=== PATIENT | male | born 1945 | race Caucasian/White ===

== ENCOUNTER → 2021-04-03 11:36 | Outpatient (CLI) | payer OTHER, SELFPAY ==
--- NOTE | 2021-04-03 | DI.MRI.S_ITS ---
PROCEDURE: MR SHOULDER RT W CON INDICATIONS: PAIN IN RIGHT SHOULDER TECHNIQUE: After the administration of 12 mL of dilute intra-articular Gadolinium contrast, oblique coronal T1 and T2 spin echo with fat saturation, oblique sagittal T1 spin echo with and without fat saturation, oblique sagittal T2 fast spin echo with fat saturation, axial T1 spin echo with fat saturation through the shoulder. COMPARISON: None. FINDINGS: Image quality: Excellent. Rotator cuff: Full-thickness tearing of the entire supraspinatus tendon as well as the mid and anterior infraspinatus tendon at the humeral insertion site, associated with medial retraction and atrophy of the supraspinatus and infraspinatus tendons. There is high-grade partial-thickness articular surface and intrasubstance tearing of the mid subscapularis tendon at the humeral insertion site. Bones and bursae: No bone marrow contusions or fractures. Multiple tendon anchors within the humeral head are present. Moderate o acromioclavicular joint degeneration. The acromion demonstrates conventional anatomy, without an os acromiale. Capsule and soft tissues: There is undercutting of the mid posterior and mid anterior labrum. The long head of the biceps tendon demonstrates normal location and high-grade tearing The rotator interval appears normal, without fibrosis. The coracohumeral ligament is of normal thickness. No intra-articular bodies. IMPRESSION: 1. Full-thickness tearing of the entire supraspinatus tendon as well as most of the infraspinatus tendon, associated with medial retraction and atrophy. 2. High-grade tearing of the mid subscapularis tendon. 3. Acromioclavicular joint osteoarthritis. 4. Postsurgical sequelae. 5. Glenoid labral tearing. 6. Biceps tendon tear. Dictated by: Joseph Lei M.D. on 04/03/2021 at 15:04 Approved by: Joseph Lei M.D. on 04/03/2021 at 15:06
--- NOTE | 2021-04-03 | DI.RAD.S_ITS ---
PROCEDURE: FL SHOULDER INJECTION MR/CT RT INDICATIONS: pain in right shoulder COMPARISON: [facility], MR, MR SHOULDER RT W CON, 04/03/2021, 13:34. TECHNIQUE: The indications, alternatives, benefits, risks, and complications of the procedure were explained to the patient. Written informed consent was obtained and placed in the chart. The shoulder was examined fluoroscopically and a site for needle placement chosen for entry into the glenohumeral joint from an anterior approach. The skin was prepped and draped in a sterile fashion, and 1% lidocaine infiltrated from skin down to joint capsule. A spinal needle was inserted into the glenohumeral joint, and a small amount of iodinated contrast media injected to confirm intra-articular placement of the needle tip. This was followed by approximately 12 mL dilute solution of a gadolinium containing MR contrast agent. The needle was removed and a dressing was applied. The patient was given postprocedural instructions and sent to the MR suite for MR imaging. FINDINGS: A single fluoroscopic spot image demonstrates intra-articular location of injected iodinated contrast. IMPRESSION: Successful fluoroscopically guided administration of dilute Gadolinium solution into the shoulder joint for MR arthrogram. Dictated by: Vasquez Gaspar M.D. on 04/03/2021 at 16:51 Approved by: Vasquez Gaspar M.D. on 04/03/2021 at 16:52
== END ==
PROVIDERS: Referring Provider Orthopaedic Surgery; Visit Provider Orthopaedic Surgery
DX: M25.511 Pain in right shoulder (principal); M75.121 Complete rotator cuff tear or rupture of right shoulder, not specified as traumatic; M19.011 Primary osteoarthritis, right shoulder; S43.491A Other sprain of right shoulder joint, initial encounter; S46.111A Strain of muscle, fascia and tendon of long head of biceps, right arm, initial encounter
CPT/HCPCS: 23350; 73222; 77002

== ENCOUNTER → 2021-04-07 11:24 | Outpatient (CLI) | payer OTHER, SELFPAY ==
--- NOTE | 2021-04-07 | DI.RAD.S_ITS ---
PROCEDURE: FL SHOULDER INJECTION MR/CT LT INDICATIONS: LEFT SHOULDER PAIN COMPARISON: [facility], MR, MR SHOULDER LT W CON, 04/07/2021, 12:00. TECHNIQUE: The indications, alternatives, benefits, risks, and complications of the procedure were explained to the patient. Written informed consent was obtained and placed in the chart. The shoulder was examined fluoroscopically and a site for needle placement chosen for entry into the glenohumeral joint from an anterior approach. The skin was prepped and draped in a sterile fashion, and 1% lidocaine infiltrated from skin down to joint capsule. A spinal needle was inserted into the glenohumeral joint, and a small amount of iodinated contrast media injected to confirm intra-articular placement of the needle tip. This was followed by approximately 12 mL dilute solution of a gadolinium containing MR contrast agent. The needle was removed and a dressing was applied. The patient was given postprocedural instructions and sent to the MR suite for MR imaging. FINDINGS: A single fluoroscopic spot image demonstrates intra-articular location of injected iodinated contrast. There was markedly greater than expected increased pressure to injection. This raises the possibility of adhesive capsulitis, although this remains a clinical diagnosis. IMPRESSION: Successful fluoroscopically guided administration of dilute Gadolinium solution into the shoulder joint for MR arthrogram. Dictated by: Vasquez Gaspar M.D. on 04/07/2021 at 13:47 Approved by: Vasquez Gaspar M.D. on 04/07/2021 at 13:50
--- NOTE | 2021-04-07 | DI.MRI.S_ITS ---
PROCEDURE: MR SHOULDER LT W CON INDICATIONS: LEFT SHOULDER PAIN TECHNIQUE: After the administration of 12 mL of dilute intra-articular Gadolinium contrast, oblique coronal T1 and T2 spin echo with fat saturation, oblique sagittal T1 spin echo with and without fat saturation, oblique sagittal T2 fast spin echo with fat saturation, axial T1 spin echo with fat saturation through the shoulder. COMPARISON: [facility], MR, MR SHOULDER RT W CON, 04/03/2021, 13:34. FINDINGS: Postsurgical changes related to prior rotator cuff repair. Rotator cuff: Large full-thickness tear involving the supraspinatus and infraspinatus tendons measuring approximately 2.8 cm in the AP dimension on sagittal pulse sequences. Teres minor tendon appears grossly intact. Subscapularis with full thickness slit-like tear, and background tendinopathy. Atrophy of the rotator cuff muscles is seen diffusely with relative sparing of the teres minor. Markedly high-riding humeral head. Bones and bursae: No bone marrow contusions or fractures. Moderate acromioclavicular joint degeneration. Acromion demonstrates conventional anatomy, without an os acromiale. Within the axillary pouch, there is possible debris versus reactive synovitis. Capsule and soft tissues: Labrum: Circumferential labral blunting and degeneration. However there is superimposed posterior labral tear with adjacent near full-thickness chondral loss and prominent degenerative changes seen in the glenoid. Some of the appearance could be related to prior surgery/labral repair. Glenohumeral ligaments: Inferior and superior glenohumeral ligaments are intact. Biceps tendon: Not well seen presumably due to rupture or prior tenodesis. Rotator interval: Partial obliteration of the subcoracoid fat signal intensity. Coracohumeral ligament: Intact. IMPRESSION: Large full-thickness rotator cuff tear as above which is likely recurrent given postsurgical changes. No prior comparison examination is available. Circumferential degeneration of the labrum, with superimposed irregularity involving the posterior segment, which could reflect postoperative appearance versus recurrent tear. Please correlate clinically to operative history. Adjacent near full-thickness chondral loss noted. Long head biceps tendon not well seen presumably due to prior tenodesis versus rupture. Debris versus reactive synovitis involving the axillary pouch. Dictated by: Vasquez Gaspar M.D. on 04/07/2021 at 13:55 Approved by: Vasquez Gaspar M.D. on 04/07/2021 at 14:10
== END ==
PROVIDERS: Referring Provider Orthopaedic Surgery; Visit Provider Orthopaedic Surgery
DX: M25.512 Pain in left shoulder (principal); M75.122 Complete rotator cuff tear or rupture of left shoulder, not specified as traumatic; M19.012 Primary osteoarthritis, left shoulder
CPT/HCPCS: 23350; 73222; 77002

== ENCOUNTER → 2021-06-02 07:07 | Outpatient (CLI) | payer OTHER, SELFPAY ==
[2021-06-02 08:38] LABS: Alanine Aminotransferase 42 IU/L (<50); Albumin Globulin Ratio 1.7 (1.0-2.8); Alkaline Phosphatase 56 U/L (38-126); Aspartate Aminotransferase 51 IU/L (17-59); BUN Creatinine Ratio 16.3 (6-22); Bilirubin Total 0.7 mg/dL (0.2-1.3); Blood Urea Nitrogen 13 mg/dL (9-20); Calcium 9.1 mg/dL (8.4-10.2); Carbon Dioxide 29 mmol/L (22-32); Chloride 96 mmol/L (98-107); Cholesterol 194 mg/dL (140-199); Estimated Glomerular Filt Rate > 60.0 mL/min (>60); Globulin 2.3 g/dL (1.7-4.1); Glucose 83 mg/dL (80-110); HDL Cholesterol 67 mg/dL (40-60); HEMOLYSIS < 15 (0-50); LDL Cholesterol Calculated 108 mg/dL (<100); Potassium 4.7 mmol/L (3.4-5.1); Sodium 130 mmol/L (137-145); Total Protein 6.3 g/dL (6.3-8.2); Triglycerides 97 mg/dL (35-150)
== END ==
PROVIDERS: PCP Internal Medicine; Referring Provider Internal Medicine; Visit Provider Internal Medicine
DX: J45.909 Unspecified asthma, uncomplicated (principal); Z13.6 Encounter for screening for cardiovascular disorders; Z12.5 Encounter for screening for malignant neoplasm of prostate; Z13.220 Encounter for screening for lipoid disorders
CPT/HCPCS: 36415; 80053; 80061; G0103

== ENCOUNTER → 2022-03-12 10:48 | Outpatient (CLI) | payer OTHER, SELFPAY ==
[2022-03-12 16:09] LABS: Influenza A - CEPHEID Flu A NEGATIVE (NEGATIVE); Influenza B - CEPHEID Flu B NEGATIVE (NEGATIVE); Respiratory Syncytial Virus Negative (Negative)
[2022-03-12 16:31] LABS: COVID-19 CEPHEID PCR (VTM/NP) Negative (Negative)
== END ==
PROVIDERS: Nurse Practitioner Family; PCP Internal Medicine; Visit Provider Student in an Organized Health Care Education/Training Program
DX: R05.9 Cough, unspecified (principal)
CPT/HCPCS: 0241U

== ENCOUNTER → 2022-03-12 14:41 | Outpatient (CLI) | payer OTHER, SELFPAY ==
--- NOTE | 2022-03-12 14:44 | DI.RAD.S_ITS ---
PROCEDURE: XR CHEST 2V INDICATIONS: Cough TECHNIQUE: 2 views of the chest were acquired. COMPARISON: None. FINDINGS: Surgical changes and devices: None. Lungs and pleura: Lungs are clear. No pleural effusions or pneumothorax. Mediastinum: Mediastinal contours are normal. Heart size is normal. Bones and chest wall: No suspicious bony abnormalities. T5, T7 and T8 compression deformities of indeterminate age. Soft tissues appear unremarkable. IMPRESSION: No acute cardiopulmonary disease process. Dictated by: Heidi Ureña MD, PhD on 03/12/2022 at 17:05 Approved by: Heidi Ureña MD, PhD on 03/12/2022 at 17:06
== END ==
PROVIDERS: PCP Internal Medicine; Referring Provider Nurse Practitioner Family; Visit Provider Nurse Practitioner Family
DX: R05.9 Cough, unspecified (principal)
CPT/HCPCS: 0241U; 71046

== ENCOUNTER → 2024-05-30 10:38 | Outpatient (CLI) | payer OTHER, SELFPAY ==
--- NOTE | 2024-05-30 10:39 | DI.RAD.S_ITS ---
PROCEDURE: XR CHEST 2V INDICATIONS: cough TECHNIQUE: 2 views of the chest were acquired. COMPARISON: None. FINDINGS: Surgical changes and devices: None. Lungs and pleura: Lungs are clear. No pleural effusions or pneumothorax. Mediastinum: Mediastinal contours are normal. Heart size is normal. Bones and chest wall: Multiple mild compression deformity of the thoracic spine, incompletely evaluated. IMPRESSION: No acute cardiopulmonary abnormality is seen. Dictated by: Thais Carter M.D. on 05/30/2024 at 14:35 Approved by: Thais Carter M.D. on 05/30/2024 at 14:36
[2024-05-30 11:13] LABS: Add Manual Diff / Slide Review NO; Basophils Absolute Auto 0 /uL (0-100); Eosinophils Absolute Auto 300 /uL (0-450); Eosinophils Percent Auto 9.1 % (2-4); Hematocrit 35.3 % (41-53); Hemoglobin 12.1 g/dL (13.5-17.5); Lymphocytes Absolute Auto 1000 /uL (1100-4500); Lymphocytes Percent Auto 30.8 % (25-40); Mean Corpuscular HGB Conc 34.3 % (30-36); Mean Corpuscular Hemoglobin 31.7 PG (26-34); Mean Corpuscular Volume 92.6 fL (80-100); Monocytes Absolute Auto 500 /uL (0-900); Monocytes Percent Auto 15.6 % (3-14); Neutrophils Absolute Auto 1500 /uL (1500-7000); Neutrophils Percent Auto 43.5 % (50-75); Platelet Count 339 X10^3/uL (150-400); Red Blood Cell Count 3.81 X10^6/uL (4.5-5.9); Red Cell Distribution Width 13.2 % (11.6-14.8); White Blood Cell Count 3.4 X10^3/uL (4.5-11.0)
[2024-05-30 11:18] LABS: Hemoglobin A1C% w Est Avg Glu 5.2 % (4.0-6.0)
[2024-05-30 11:30] LABS: Alanine Aminotransferase 20 IU/L (<50); Albumin Globulin Ratio 1.8 (1.0-2.8); Alkaline Phosphatase 66 U/L (38-126); Aspartate Aminotransferase 32 IU/L (17-59); BUN Creatinine Ratio 14.1 (6-22); Bilirubin Total 0.7 mg/dL (0.2-1.3); Blood Urea Nitrogen 12 mg/dL (9-20); Carbon Dioxide 27 mmol/L (22-32); Chloride 95 mmol/L (98-107); Estimated Glomerular Filt Rate > 60 mL/min (>60); Globulin 2.2 g/dL (1.7-4.1); Glucose 87 mg/dL (80-110); HEMOLYSIS < 15 (0-50); Potassium 4.1 mmol/L (3.4-5.1); Sodium 125 mmol/L (137-145); Total Protein 6.2 g/dL (6.3-8.2)
[2024-05-30 11:47] LABS: Prolactin 10.8 ng/mL (3.7-17.9)
[2024-05-30 12:01] LABS: TSH w/ Reflex to FT4 1.52 uIU/mL (0.47-4.68)
[2024-05-31 07:36] LABS: C Peptide 1.6 ng/mL (1.1-4.4); Insulin Level Total 3.2 uIU/mL (2.6-24.9)
== END ==
PROVIDERS: PCP Internal Medicine; Referring Provider Internal Medicine; Visit Provider Internal Medicine
DX: D35.2 Benign neoplasm of pituitary gland (principal); R05.9 Cough, unspecified; J45.909 Unspecified asthma, uncomplicated; E16.2 Hypoglycemia, unspecified; K52.9 Noninfective gastroenteritis and colitis, unspecified
CPT/HCPCS: 36415; 71046; 80053; 83036; 83525; 84146; 84443; 84681; 85025

== ENCOUNTER → 2024-05-30 15:34 | Outpatient (CLI) | payer OTHER, SELFPAY ==
[2024-05-30 15:50] LABS: HEMOLYSIS < 15 (0-50); Iron 53 ug/dL (49-181)
[2024-05-30 16:01] LABS: Percent Iron Saturation 17 % (20-50); Total Iron Binding Capacity 304 ug/dL (261-462); Transferrin 251 mg/dL (206-381)
[2024-05-30 16:41] LABS: Vitamin B12 300 pg/mL (239-931)
== END ==
PROVIDERS: PCP Internal Medicine; Visit Provider Internal Medicine
DX: D35.2 Benign neoplasm of pituitary gland (principal); J45.20 Mild intermittent asthma, uncomplicated; R53.83 Other fatigue; R05.9 Cough, unspecified; E16.2 Hypoglycemia, unspecified; K52.9 Noninfective gastroenteritis and colitis, unspecified
CPT/HCPCS: 36415; 71046; 80053; 82607; 83036; 83525; 83540; 83550; 84146; 84443; 84681; 85025

== ENCOUNTER → 2024-10-11 16:27 | Outpatient (CLI) | payer MEDICARE, SELFPAY ==
--- NOTE | 2024-10-11 16:28 | DI.RAD.S_ITS ---
PROCEDURE: XR CHEST 2V INDICATIONS: chronic cough x 2 weeks, hx asthma TECHNIQUE: 2 views of the chest were acquired. COMPARISON: [facility], CR, XR CHEST 2V, 05/30/2024, 11:04. FINDINGS: Heart, mediastinum and pulmonary vascular: Heart is normal in size and configuration. Mediastinum is unremarkable. Pulmonary vascular is normal. Lungs: Clear Pleural spaces: Normal-no effusions or pneumothorax. Bones and soft tissues: Moderate compression fracture of a midthoracic vertebral body likely T8 appreciated. Other mild compression fractures seen in the upper midthoracic spine IMPRESSION: No cardiopulmonary disease. Suspect osteoporosis in a male patient with compression fractures in the midthoracic spine. Consider DEXA scan Dictated by: George Dubose M.D. on 10/12/2024 at 11:52 Approved by: George Dubose M.D. on 10/12/2024 at 11:53
== END ==
PROVIDERS: PCP Internal Medicine; Referring Provider Physician Assistant; Visit Provider Physician Assistant
DX: J45.909 Unspecified asthma, uncomplicated (principal); R05.9 Cough, unspecified; M48.54XA Collapsed vertebra, not elsewhere classified, thoracic region, initial encounter for fracture
CPT/HCPCS: 71046

== ENCOUNTER → 2024-10-17 16:47 | Outpatient (CLI) | payer MEDICARE, SELFPAY ==
[2024-10-17 17:51] LABS: Add Manual Diff / Slide Review NO; Basophils Absolute Auto 0 /uL (0-100); Basophils Percent Auto 0.5 % (0-2); Eosinophils Absolute Auto 200 /uL (0-450); Eosinophils Percent Auto 3.9 % (2-4); Hematocrit 39.9 % (41-53); Hemoglobin 13.7 g/dL (13.5-17.5); Lymphocytes Absolute Auto 1300 /uL (1100-4500); Lymphocytes Percent Auto 28.8 % (25-40); Mean Corpuscular HGB Conc 34.3 % (30-36); Mean Corpuscular Hemoglobin 31.1 PG (26-34); Mean Corpuscular Volume 90.5 fL (80-100); Monocytes Absolute Auto 500 /uL (0-900); Monocytes Percent Auto 11.2 % (3-14); Neutrophils Absolute Auto 2600 /uL (1500-7000); Neutrophils Percent Auto 55.6 % (50-75); Platelet Count 466 X10^3/uL (150-400); Red Blood Cell Count 4.41 X10^6/uL (4.5-5.9); Red Cell Distribution Width 13.5 % (11.6-14.8); White Blood Cell Count 4.7 X10^3/uL (4.5-11.0)
[2024-10-17 18:17] LABS: Alanine Aminotransferase 24 IU/L (<50); Albumin 4.4 g/dL (3.5-5.0); Albumin Globulin Ratio 1.9 (1.0-2.8); Alkaline Phosphatase 66 U/L (38-126); Aspartate Aminotransferase 31 IU/L (17-59); BUN Creatinine Ratio 16.3 (6-22); Bilirubin Total 0.9 mg/dL (0.2-1.3); Blood Urea Nitrogen 15 mg/dL (9-20); C-Reactive Protein Quant < 0.5 mg/dL (<1.0); Calcium 9.2 mg/dL (8.4-10.2); Carbon Dioxide 24 mmol/L (22-32); Chloride 96 mmol/L (98-107); Estimated Glomerular Filt Rate > 60 mL/min (>60); Globulin 2.3 g/dL (1.7-4.1); Glucose 77 mg/dL (80-110); HEMOLYSIS < 15 (0-50); Potassium 4.3 mmol/L (3.4-5.1); Sodium 128 mmol/L (137-145); Total Protein 6.7 g/dL (6.3-8.2)
[2024-10-17 18:47] LABS: TSH w/ Reflex to FT4 1.19 uIU/mL (0.47-4.68)
[2024-10-17 19:22] LABS: Erythrocyte Sedimentation Rate 6 MM/HR (0-15)
== END ==
LOC: LAB 16:47
PROVIDERS: PCP Internal Medicine; Referring Provider Internal Medicine; Visit Provider Internal Medicine
DX: D64.9 Anemia, unspecified (principal); J45.909 Unspecified asthma, uncomplicated; D35.2 Benign neoplasm of pituitary gland; R53.83 Other fatigue; E03.9 Hypothyroidism, unspecified
CPT/HCPCS: 36415; 80053; 84443; 85025; 85651; 86140

== ENCOUNTER → 2024-10-24 14:48 | Outpatient (CLI) | payer MEDICARE, SELFPAY | PROVIDERS: PCP Internal Medicine; Referring Provider Physician Assistant; Visit Provider Physician Assistant | DX: J45.20 Mild intermittent asthma, uncomplicated (principal); R94.2 Abnormal results of pulmonary function studies | CPT/HCPCS: 94060; 94726; 94729 ==

== ENCOUNTER 2024-12-03 11:27 | Emergency (ER) | payer MEDICARE, SELFPAY ==
[2024-12-03] VITALS (20 sets, daily range): BP systolic 115–148; BP diastolic 58–97; PULSE 75–89; RESP 16–22; TEMP 36.4; O2SAT 91–98; BMI 22.6
--- NOTE | 2024-12-03 11:52 | DI.RAD.S_ITS ---
PROCEDURE: XR RIBS LT MIN 3V W CXR1V INDICATIONS: fall TECHNIQUE: 2 views of the ribs were acquired, along with a single view chest. COMPARISON: None. FINDINGS: Surgical changes and devices: None. Bones and chest wall: Posterior left 5th rib fracture. Anterolateral left 10th rib fracture Lungs and pleura: Cardiomegaly and large left pleural effusion. Right lung and pleural space clear. No pneumothorax. Mediastinum: As above IMPRESSION: Left 5th and 10th rib fractures associated with large pleural effusion. No pneumothorax. Approved by: Lamont Garcia M.D. on 12/03/2024 at 11:40
[2024-12-03] MEDS: MORPHINE 4 MG/ML INJ IV ×2 (13:37→18:13)
[2024-12-03 13:51] LABS: Add Manual Diff / Slide Review NO; Basophils Absolute Auto 0 /uL (0-100); Basophils Percent Auto 0.2 % (0-2); Eosinophils Absolute Auto 0 /uL (0-450); Eosinophils Percent Auto 0.2 % (2-4); Hemoglobin 10.3 g/dL (13.5-17.5); Lymphocytes Absolute Auto 900 /uL (1100-4500); Lymphocytes Percent Auto 9.5 % (25-40); Mean Corpuscular HGB Conc 34.2 % (30-36); Mean Corpuscular Volume 93.7 fL (80-100); Monocytes Absolute Auto 900 /uL (0-900); Monocytes Percent Auto 9.3 % (3-14); Neutrophils Absolute Auto 8000 /uL (1500-7000); Neutrophils Percent Auto 80.8 % (50-75); Platelet Count 303 X10^3/uL (150-400); Red Blood Cell Count 3.21 X10^6/uL (4.5-5.9); Red Cell Distribution Width 13.8 % (11.6-14.8); White Blood Cell Count 9.9 X10^3/uL (4.5-11.0)
[2024-12-03 13:57] LABS: INR 0.9 (0.9-1.3); Prothrombin Time 10.5 SECONDS (9.4-12.5)
[2024-12-03 14:00] LABS: PTT Partial Thromboplastin Tim 29 SECONDS (25.1-36.5)
[2024-12-03 14:03] LABS: Alanine Aminotransferase 29 IU/L (<50); Albumin 4.3 g/dL (3.5-5.0); Albumin Globulin Ratio 1.8 (1.0-2.8); Alkaline Phosphatase 71 U/L (38-126); Aspartate Aminotransferase 32 IU/L (17-59); BUN Creatinine Ratio 20.9 (6-22); Bilirubin Total 1.2 mg/dL (0.2-1.3); Blood Urea Nitrogen 19 mg/dL (9-20); Calcium 9.2 mg/dL (8.4-10.2); Carbon Dioxide 26 mmol/L (22-32); Chloride 102 mmol/L (98-107); Estimated Glomerular Filt Rate > 60 mL/min (>60); Ethanol (ETOH) < 10 mg/dL; Globulin 2.4 g/dL (1.7-4.1); Glucose 116 mg/dL (70-99); HEMOLYSIS < 15 (0-50); Lactate (Lactic Acid) 0.9 mmol/L (0.7-2.1); Lipase 60 U/L (23-300); Potassium 4.1 mmol/L (3.4-5.1); Sodium 133 mmol/L (137-145); Total Protein 6.7 g/dL (6.3-8.2)
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
--- NOTE | 2024-12-03 14:17 | EKG_ITS ---
[facility] [address] [place] [id number] Test Date: 2024-12-03 Pat Name: Foster Cash Department: [facility] Room: Gender: Male Proposal Analyst: SHERIF : 1945 Requested By: Order Number: [id number] Reading MD: Jace Grove Measurements Intervals [place] Rate: 80 P: 40 ID: [id number] QRS: 1 QRSD: 80 T: 35 QT: 358 QTc: 412 Interpretive Statements Normal sinus rhythm Moderate voltage criteria for LVH, may be normal variant ( R in aVL , Sokolow-Davis ) Cannot rule out Inferior infarct , age undetermined Electronically Signed On 12-06-2024 17:37:42 PDT by Jace Grove
--- NOTE | 2024-12-03 15:05 | DI.CT.S_ITS ---
PROCEDURE: CT CHEST ABD PEL W CON INDICATIONS: Left rib fx, ?effusion/hemothorax, midline T5/T12 pain TECHNIQUE: After the administration of intravenous contrast, 5 mm thick sections acquired from the lung apices to the symphysis. 5 mm coronal and sagittal reformats were performed, with additional 7 mm MIP reformats through the lungs. For radiation dose reduction, the following was used: automated exposure control, adjustment of mA and/or kV according to patient size. COMPARISON: None. FINDINGS: Image quality: Excellent. CHEST: Lower Neck: No enlarged lymph nodes. Thyroid: No thyroid nodules which require sonographic follow up, per consensus guidelines. Axillae: No enlarged lymph nodes. Chest Wall: Nondisplaced left anterolateral 3rd 4 5 as well as posterior 3rd 5th and proximal 6th 7th rib fractures. Degenerative bilateral glenohumeral joints greater on the right. Wedge-shaped compression fractures T5, T7 and T8. No retropulsed fracture fragments. Lungs and Pleura: No pneumothorax or pleural effusions. Large left pleural effusion with heterogenous internal increased density probably reflecting hemo thorax. Associated compressive atelectasis. Right lung and pleural space clear. Heart: Heart size is normal. No pericardial effusion. Thoracic Vessels: The aorta and pulmonary arteries demonstrate normal size. Mediastinum and Kassie: No enlarged lymph nodes. Esophagus: No wall thickening. No hiatal hernia. ABDOMEN: Liver: No solid mass. Gallbladder: No radiopaque gallstones or wall thickening. Biliary ducts: No biliary dilation. Pancreas: No ductal dilation. Spleen: Size is within normal limits. Adrenal Glands: No adrenal nodules. Kidneys and Ureters: No hydronephrosis. No solid mass. No complex renal cystic lesion which requires follow up. Stomach and Bowel: Normal colonic caliber, without significant wall thickening. Peritoneum: No abnormal intraperitoneal fluid. No free air. Ventral Wall: No significant ventral hernia. Abdominal Nodes: No retroperitoneal or mesenteric adenopathy by size criteria. Vessels: Aorta and inferior vena cava are normal in size. PELVIS: Pelvic Organs: Unremarkable. Bladder: No bladder wall thickening, accounting for underdistention. Pelvic Nodes: No enlarged lymph nodes. Miscellaneous: Left inguinal hernia Bones: No aggressive osseous abnormality. Degenerative disc disease and arthropathy lumbar spine IMPRESSION: Multiple left-sided rib fractures and anterior lateral as well as posterior, associated with left-sided pleural effusion with an element of hemothorax present as well. T5, T7 and T8 wedge-shaped compression fractures, uncertain age. No canal compromise. No solid organ injury in the abdomen and pelvis. Approved by: Lamont Garcia M.D. on 12/03/2024 at 15:11
--- NOTE | 2024-12-03 15:05 | DI.CT.S_ITS ---
PROCEDURE: CT HEAD/BRAIN WO CON INDICATIONS: Left rib fx, ?effusion/hemothorax, midline T5/T12 pain TECHNIQUE: Noncontrast 4.5 mm thick angled axial sections acquired from the foramen magnum to the vertex, with coronal and sagittal reformats. For radiation dose reduction, the following was used: automated exposure control, adjustment of mA and/or kV according to patient size. COMPARISON: None. FINDINGS: Image quality: Diagnostic. CSF spaces: Basal cisterns are patent. No extra-axial fluid collections. Ventricles are normal in size and shape. Brain: No midline shift. No intracranial mass effect or hemorrhage. Lyman-white matter interface is normal. Moderate atrophy and chronic ischemic change There is expansion of the sella by a pituitary mass lesion which appears to invade the sphenoid bone inferiorly and probably involves the cavernous sinuses laterally Skull and face: Calvarium and visualized facial bones are intact, without suspicious lesions. Sinuses: Extensive prior sinus surgery with maxillary osseous wall thickening. Large nasal antral windows and ethmoidectomy IMPRESSION: Moderate atrophy and chronic ischemic change without acute hemorrhage or mass effect intracranially. Pituitary mass lesion invasion of the sphenoid and possibly bilateral cavernous sinus. No suprasellar extension. Consider follow-up nonemergent MR brain pituitary protocol with contrast Approved by: Lamont Garcia M.D. on 12/03/2024 at 15:02
--- NOTE | 2024-12-03 15:05 | DI.CT.S_ITS ---
PROCEDURE: CT CERVICAL SPINE WO CON INDICATIONS: Left rib fx, ?effusion/hemothorax, midline T5/T12 pain TECHNIQUE: Noncontrast 3 mm thick sections acquired from the skull base to the T4 level. Sagittal and coronal reformats were then constructed. For radiation dose reduction, the following was used: automated exposure control, adjustment of mA and/or kV according to patient size. COMPARISON: [facility], CT, CT HEAD/BRAIN WO CON, 12/03/2024, 15:13. FINDINGS: Image quality: Excellent. Bones: No fractures or dislocations. Visualized superior ribs are intact. Degenerative disc disease and arthropathy in the cervical spine results in degenerative listhesis at C4-5, C5-6 and C6-7 fold to lesser degree at C7-T1 all associated with hypertrophic facet joints craniovertebral relationships are normal Incidental note is made of erosion of the clivus and enlargement of the pituitary sella filled with soft tissue extending into the underlying sphenoid and clivus Soft tissues: Prevertebral soft tissues are normal in thickness. No paravertebral hematomas. No apical pneumothoraces. 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 Consider follow-up nonemergent MR brain pituitary protocol with contrast Approved by: Lamont Garcia M.D. on 12/03/2024 at 14:58
[2024-12-03 17:09] LABS: Appearance Urine UA CLEAR; Bilirubin Urine UA 1+ (NEGATIVE); Color Urine UA YELLOW; Glucose Urine UA NEGATIVE (Negative); Ketones Urine UA TRACE (NEGATIVE); Leukocyte Esterase Urine UA NEGATIVE (NEGATIVE); Nitrite Urine UA NEGATIVE (Negative); Occult Blood Urine UA NEGATIVE (Negative); Protein Urine UA 1+ (Negative); Urobilinogen Urine UA 0.2 E.U./dL (0.2)
[2024-12-03 17:19] LABS: UR Morphine/Opiate cutoff 300 Positive (Negative); Urine Amphetamines Negative (Negative); Urine Barbiturates Negative (Negative); Urine Benzodiazepines Negative (Negative); Urine Cocaine Negative (Negative); Urine MDMA Negative (Negative); Urine Methadone Negative (Negative); Urine Methamphetamines Negative (Negative); Urine Oxycodone Negative (Negative); Urine Phencyclidine Negative (Negative); Urine Tetrahydrocannabinol Negative (Negative); Urine Tricyclic Antidepressant Negative (Negative)
[2024-12-03 17:23] LABS: Bacteria Urine Few (2-10); Ictotest Urine Negative (Negative); Mucus Urine 2+ (Negative); RBC Urine 0-1/HPF (0-5/HPF); Squamous Epithelial Cell Urine None Seen (0-5/HPF); Urine Volume 10mL (spun); WBC Urine 0-1/HPF (0-5/HPF)
[2024-12-03 17:24] LABS: Culture Indicated Urine Cult Not Indicated
--- NOTE | 2024-12-03 18:10 | PC.NURSE ---
Spinal precautions in place. Pt lying supine. Verbalizes understanding of precautions. Call light in reach.
[2024-12-03] MEDS: SODIUM CHLORIDE 0.9% 1,000 ML 100 ML IV (18:14)
--- NOTE | 2024-12-03 19:06 | PC.NURSE ---
Report given to [facility] ambulance transport.
== END 2024-12-03 19:21 | disposition short-term general hospital (02) ==
PROVIDERS: Emergency Provider Emergency Medicine; PCP Internal Medicine
DX: S22.42XA Multiple fractures of ribs, left side, initial encounter for closed fracture (principal); S22.050A Wedge compression fracture of T5-T6 vertebra, initial encounter for closed fracture; S22.060A Wedge compression fracture of T7-T8 vertebra, initial encounter for closed fracture; S09.90XA Unspecified injury of head, initial encounter; S27.1XXA Traumatic hemothorax, initial encounter; S59.902A Unspecified injury of left elbow, initial encounter; V19.9XXA Pedal cyclist (driver) (passenger) injured in unspecified traffic accident, initial encounter
CPT/HCPCS: 36415; 70450; 71101; 71260; 72125; 74177; 80053; 80305; 80320; 81001; 83605; 83690; 85025; 85610; 85730; 86850; 86900; 86901; 93005; 96361; 96374; 96376; 99284; J2270; Q9967

== ENCOUNTER → 2024-12-28 16:37 | Outpatient (CLI) | payer MEDICARE, SELFPAY ==
--- NOTE | 2024-12-28 16:39 | DI.RAD.S_ITS ---
PROCEDURE: XR ACUTE ABDOMEN SERIES INDICATIONS: diarrhea TECHNIQUE: One view chest and two views of the abdomen were acquired. COMPARISON: [facility], CT, CT CHEST ABD PEL W CON, 12/03/2024, 15:13. FINDINGS: Surgical changes and devices: None. Chest: Lungs are clear. Heart size is normal. Small-moderate left pleural effusion with associated passive atelectasis. No pneumoperitoneum. Abdomen: Bowel gas pattern is normal. No suspicious calcifications. Visualized solid organ contours appear normal. Bones: Re-identified multiple left-sided rib fractures. IMPRESSION: 1. No radiographic evidence of bowel obstruction or pneumoperitoneum. 2. Persistent small-moderate left pleural effusion, with multiple left-sided rib fractures. No pneumothorax. Dictated by: Steve Leone M.D. on 12/29/2024 at 11:28 Approved by: Steve Leone M.D. on 12/29/2024 at 11:31
[2024-12-28 18:11] LABS: Add Manual Diff / Slide Review NO; Basophils Absolute Auto 0 /uL (0-100); Basophils Percent Auto 0.5 % (0-2); Eosinophils Absolute Auto 300 /uL (0-450); Eosinophils Percent Auto 5.8 % (2-4); Hematocrit 31.1 % (41-53); Hemoglobin 10.5 g/dL (13.5-17.5); Lymphocytes Absolute Auto 1000 /uL (1100-4500); Lymphocytes Percent Auto 23.4 % (25-40); Mean Corpuscular HGB Conc 33.8 % (30-36); Mean Corpuscular Hemoglobin 30.4 PG (26-34); Mean Corpuscular Volume 89.8 fL (80-100); Monocytes Absolute Auto 400 /uL (0-900); Monocytes Percent Auto 8.1 % (3-14); Neutrophils Absolute Auto 2800 /uL (1500-7000); Neutrophils Percent Auto 62.2 % (50-75); Platelet Count 428 X10^3/uL (150-400); Red Blood Cell Count 3.46 X10^6/uL (4.5-5.9); Red Cell Distribution Width 13.6 % (11.6-14.8); White Blood Cell Count 4.4 X10^3/uL (4.5-11.0)
[2024-12-28 18:18] LABS: Hemoglobin A1C% w Est Avg Glu 4.7 % (4.0-6.0)
[2024-12-28 18:25] LABS: Alanine Aminotransferase 23 IU/L (<50); Albumin 4.1 g/dL (3.5-5.0); Alkaline Phosphatase 103 U/L (38-126); Aspartate Aminotransferase 33 IU/L (17-59); Bilirubin Total 0.5 mg/dL (0.2-1.3); Blood Urea Nitrogen 15 mg/dL (9-20); C-Reactive Protein Quant < 0.5 mg/dL (<1.0); Carbon Dioxide 23 mmol/L (22-32); Chloride 97 mmol/L (98-107); Estimated Glomerular Filt Rate > 60 mL/min (>60); Globulin 2.1 g/dL (1.7-4.1); Glucose 77 mg/dL (70-99); HEMOLYSIS < 15 (0-50); Lipase 129 U/L (23-300); Potassium 4.6 mmol/L (3.4-5.1); Sodium 127 mmol/L (137-145); Total Protein 6.2 g/dL (6.3-8.2)
[2024-12-28 18:28] LABS: Erythrocyte Sedimentation Rate 22 MM/HR (0-15)
[2024-12-28 18:37] LABS: Free T4, Direct Thyroxine 0.97 ng/dL (0.78-2.19)
[2024-12-28 18:39] LABS: Prolactin 12.4 ng/mL (3.7-17.9)
[2024-12-28 18:51] LABS: Thyroid Stimulating Hormone 0.829 uIU/mL (0.47-4.68)
[2024-12-28 19:10] LABS: Vitamin B12 382 pg/mL (239-931)
== END ==
PROVIDERS: PCP Internal Medicine; Referring Provider Internal Medicine; Visit Provider Internal Medicine
DX: S22.42XA Multiple fractures of ribs, left side, initial encounter for closed fracture (principal); J90 Pleural effusion, not elsewhere classified; J98.11 Atelectasis; R19.7 Diarrhea, unspecified; R73.9 Hyperglycemia, unspecified; D35.2 Benign neoplasm of pituitary gland; R63.4 Abnormal weight loss; D64.9 Anemia, unspecified; X58.XXXA Exposure to other specified factors, initial encounter
CPT/HCPCS: 36415; 74022; 80053; 82607; 83036; 83690; 84146; 84439; 84443; 85025; 85651; 86140

== ENCOUNTER → 2025-04-27 15:07 | Outpatient (CLI) | payer MEDICARE, SELFPAY ==
[2025-04-27 16:24] LABS: Add Manual Diff / Slide Review NO; Hematocrit 36.0 % (41-53); Hemoglobin 12.2 g/dL (13.5-17.5); Lymphocytes Absolute Auto 1200 /uL (1100-4500); Mean Corpuscular HGB Conc 33.8 % (30-36); Mean Corpuscular Hemoglobin 30.2 PG (26-34); Mean Corpuscular Volume 89.3 fL (80-100); Platelet Count 363 X10^3/uL (150-400)
[2025-04-27 16:47] LABS: HEMOLYSIS < 15 (0-50); Iron 136 ug/dL (49-181)
[2025-04-27 16:49] LABS: Blood Urea Nitrogen 17 mg/dL (9-20); Calcium 9.3 mg/dL (8.4-10.2); Carbon Dioxide 27 mmol/L (22-32); Chloride 100 mmol/L (98-107); Estimated Glomerular Filt Rate > 60 mL/min (>60); Glucose 101 mg/dL (70-99); HEMOLYSIS < 15 (0-50); Potassium 4.5 mmol/L (3.4-5.1); Sodium 133 mmol/L (137-145)
[2025-04-27 16:57] LABS: Percent Iron Saturation 44 % (20-50); Total Iron Binding Capacity 310 ug/dL (261-462); Transferrin 267 mg/dL (206-381)
== END ==
PROVIDERS: PCP Internal Medicine; Referring Provider Internal Medicine; Visit Provider Internal Medicine
DX: D64.9 Anemia, unspecified (principal)
CPT/HCPCS: 36415; 80048; 83540; 83550; 85025